=== PATIENT | female | born 1990 | race Two or more races ===

== ENCOUNTER 2024-09-10 14:19 | Outpatient (RCR) | payer MEDICAID, SELFPAY ==
--- NOTE | 2024-09-10 14:37 | PT.OIERPT ---
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 It hurts at night and doesn't hurt during the day and she can do most HH chores but with pain at night. The hand pain is concentrated in the digits attributed to using the cutter tool at work. 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 The R shoulder pain is consistent with RC impingement/tendinopathy. Pt requires skilled therapy to meet goals and has fair rehab potential. Eval followed by HEP printout. 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 INd with HEP 2. Tolerate work duties with <=3/10 UE pain at night 3. Decreased R hand tingling by 50% Treatment Plan 1. Manual therapy ? 2. Therex ? 3. Modalities as indicated, moist heat pack, ice, electrical stimulation, Frequency and Duration: 2x a week for 12 sessions plus the evaluation Certification Dates: 09/10/24 to 12/10/24 Procedure Charges OP PT Eval Mod Complex 30 minutes: Yes
== END 2024-10-04 23:59 | disposition home or self-care (01) ==
LOC: CPTX 14:19
PROVIDERS: PCP Physician Assistant; Referring Provider Physician Assistant; Visit Provider Physician Assistant
DX: M79.641 Pain in right hand (principal); M25.511 Pain in right shoulder; M25.531 Pain in right wrist
CPT/HCPCS: 97162